=== PATIENT | male | born 2000 | race Caucasian/White ===

== ENCOUNTER 2021-09-10 11:15 | Emergency (ER) | payer SELFPAY ==
[~2021-09-10] VITALS: Ht 162.6 cm; Wt 68.0 kg
[2021-09-10] MEDS ORDERED: ONDANSETRON ODT4 MG PO (11:30)
[2021-09-10] MEDS ORDERED: ONDANSETRON HCL 4 MG ORAL DISINTEGRATING TAB PO ONE (11:30)
== END 2021-09-10 11:40 | disposition home or self-care (01) ==
LOC: ER 11:22
DX: U07.1 COVID-19 (principal); R11.2 Nausea with vomiting, unspecified
CPT/HCPCS: 99283; Q0162